=== PATIENT | female | born 1975 | race Caucasian/White ===

== ENCOUNTER 2022-05-07 10:28 | Outpatient (CLI) | payer OTHER, SELFPAY ==
[2022-05-07 13:45] LABS: Basophils Absolute Auto 0.06 K/uL (0.00-0.30); Basophils Percent Auto 0.7 % (0.0-3.0); Eosinophils Absolute Auto 0.18 K/uL (0.00-0.50); Eosinophils Percent Auto 2.2 % (0.0-7.0); Hematocrit 34.6 % (33.0-51.0); Hemoglobin* 10.7 gm/dL (12.0-16.0); Immature Granulocytes Abs Auto 0.02 K/uL (0.00-0.30); Lymphocytes Absolute Auto 2.16 K/uL (0.90-2.90); Lymphocytes Percent Auto 26.1 % (20-44); Mean Corpuscular HGB Conc 31 gm/dL (32-36); Mean Corpuscular Hemoglobin 25 pg (26-34); Mean Corpuscular Volume 80 fL (80-100); Monocytes Percent Auto 9.3 % (0.0-11.0); Neutrophils Absolute Auto 5.08 K/uL (1.7-7.0); Neutrophils Percent Auto 61.5 % (42.0-72.0); Platelet Count* 299 K/uL (140-440); RDW Coefficient of Variation % 16.7 % (11.5-15.5); Red Blood Count 4.31 m/uL (4.00-5.20); White Blood Count* 8.27 K/uL (4.50-11.00)
[2022-05-07 13:52] LABS: Slide Review Reflex No
[2022-05-07 15:14] LABS: Chloride* 103 mmol/L (96-114); Potassium* 4.6 mmol/L (3.6-5.1); Sodium* 136 mmol/L (135-149)
[2022-05-07 15:16] LABS: Creatinine* 0.7 mg/dL (0.5-1.5); Estimated Glomerular Filt Rate 108 ml/min
[2022-05-07 15:17] LABS: Alanine Aminotransferase* 15 U/L (4-35); Blood Urea Nitrogen* 14 mg/dL (5-24); Carbon Dioxide* 25 mmol/L (20-32); Glucose* 145 mg/dL (60-115)
[2022-05-07 17:33] LABS: Thyroid Stimulating Hormone* 0.375 uIU/mL (0.270-4.20)
== END 2022-05-07 10:29 | disposition home or self-care (01) ==
PROVIDERS: PCP Family Medicine; Visit Provider Family Medicine
DX: E03.9 Hypothyroidism, unspecified (principal); I10 Essential (primary) hypertension; M06.9 Rheumatoid arthritis, unspecified; E11.9 Type 2 diabetes mellitus without complications; D50.9 Iron deficiency anemia, unspecified
CPT/HCPCS: 80048; 84443; 84460; 85025

== ENCOUNTER 2022-12-17 11:59 | Outpatient (CLI) | payer OTHER, SELFPAY | END 2022-12-17 12:00 | disposition home or self-care (01) | PROVIDERS: PCP Family Medicine; Visit Provider Family Medicine | DX: I10 Essential (primary) hypertension (principal); E03.9 Hypothyroidism, unspecified; E11.9 Type 2 diabetes mellitus without complications; E55.9 Vitamin D deficiency, unspecified; D50.9 Iron deficiency anemia, unspecified; M06.9 Rheumatoid arthritis, unspecified | CPT/HCPCS: 80048; 84439; 84443; 84460; 85025 ==

== ENCOUNTER 2023-04-16 12:38 | Outpatient (CLI) | payer OTHER, SELFPAY ==
[2023-04-16 13:48] LABS: Basophils Absolute Auto 0.04 K/uL (0.00-0.30); Basophils Percent Auto 0.5 % (0.0-3.0); Eosinophils Absolute Auto 0.12 K/uL (0.00-0.50); Eosinophils Percent Auto 1.5 % (0.0-7.0); Hematocrit 31.2 % (33.0-51.0); Hemoglobin* 9.1 gm/dL (12.0-16.0); Immature Granulocytes Abs Auto 0.01 K/uL (0.00-0.30); Immature Granulocytes Pct Auto 0.1 %; Lymphocytes Absolute Auto 1.92 K/uL (0.90-2.90); Lymphocytes Percent Auto 24.7 % (20-44); Mean Corpuscular HGB Conc 29 gm/dL (32-36); Mean Corpuscular Hemoglobin 23 pg (26-34); Mean Corpuscular Volume 77 fL (80-100); Monocytes Percent Auto 8.6 % (0.0-11.0); Neutrophils Absolute Auto 5.02 K/uL (1.7-7.0); Neutrophils Percent Auto 64.6 % (42.0-72.0); Platelet Count* 328 K/uL (140-440); Red Blood Count 4.04 m/uL (4.00-5.20); White Blood Count* 7.78 K/uL (4.50-11.00)
[2023-04-16 13:51] LABS: Slide Review Reflex No
[2023-04-16 14:35] LABS: Ferritin* 4.8 ng/mL (6.24-137.0)
== END 2023-04-16 12:39 | disposition home or self-care (01) ==
PROVIDERS: PCP Family Medicine; Visit Provider Family Medicine
DX: D50.0 Iron deficiency anemia secondary to blood loss (chronic) (principal); I48.0 Paroxysmal atrial fibrillation; E11.9 Type 2 diabetes mellitus without complications
CPT/HCPCS: 82728; 85025

== ENCOUNTER 2023-05-23 15:00 | Outpatient (RCR) | payer OTHER, SELFPAY ==
--- NOTE | 2023-05-06 09:37 | URNOTE ---
Request received for authorization for?Iron Sucrose (Venofer) ([id number]). Prior authorization is not required per Alicia for [employer]. Joshua Corey. Ref#[id number].
--- NOTE | 2023-05-06 10:11 | ONC.NURNOTE ---
Dx: Iron deficiency anemia secondary to chronic blood loss.
[2023-05-09 11:02] VITALS: BP 148/91; PULSE 67; RESP 18; TEMP 36.8; O2SAT 98
[2023-05-09] MEDS: 0.9 % SODIUM CHLORIDE 250 ml IV (11:45)
[2023-05-09] MEDS: IRON SUCROSE COMPLEX 200 MG in 0.9 % SODIUM CHLORIDE 100 ml 100 ML 440 MG IVPB (11:58)
[2023-05-09 12:16] VITALS: BP 115/77; PULSE 63; RESP 16; TEMP 36.4; O2SAT 96
[2023-05-09 12:57] VITALS: BP 103/69; PULSE 61; RESP 18; TEMP 37; O2SAT 97
[2023-05-14 15:07] VITALS: BP 105/71; PULSE 62; RESP 16; TEMP 36.6; O2SAT 98
[2023-05-14] MEDS: IRON SUCROSE COMPLEX 200 MG in 0.9 % SODIUM CHLORIDE 100 ml 100 ML 440 MG IVPB (15:46)
[2023-05-14] MEDS: 0.9 % SODIUM CHLORIDE 250 ml IV (16:25)
[2023-05-16 15:02] VITALS: BP 120/74; PULSE 72; RESP 16; TEMP 36.4; O2SAT 98
[2023-05-16] MEDS: IRON SUCROSE COMPLEX 200 MG in 0.9 % SODIUM CHLORIDE 100 ml 100 ML 440 MG IVPB (15:14)
[2023-05-16] MEDS: 0.9 % SODIUM CHLORIDE 250 ml IV (15:14)
[2023-05-16 16:10] VITALS: BP 105/66; PULSE 68; RESP 16; TEMP 36.1
[2023-05-20 15:00] VITALS: BP 114/76; PULSE 82; RESP 16; TEMP 36.3; O2SAT 96
[2023-05-20] MEDS: IRON SUCROSE COMPLEX 200 MG in 0.9 % SODIUM CHLORIDE 100 ml 100 ML 440 MG IVPB (15:10)
[2023-05-20] MEDS: 0.9 % SODIUM CHLORIDE 250 ml IV (15:10)
[2023-05-23 15:06] VITALS: BP 118/86; PULSE 69; RESP 16; TEMP 36.1; O2SAT 96
[2023-05-23] MEDS: 0.9 % SODIUM CHLORIDE 250 ml IV (15:22)
[2023-05-23] MEDS: IRON SUCROSE COMPLEX 200 MG in 0.9 % SODIUM CHLORIDE 100 ml 100 ML 440 MG IVPB (15:23)
[2023-05-23 16:19] VITALS: BP 116/81; PULSE 69; RESP 16; TEMP 36.1; O2SAT 96
== END 2023-11-05 23:59 | disposition home or self-care (01) ==
LOC: CCIC 15:00
PROVIDERS: PCP Family Medicine; Referring Provider Family Medicine; Visit Provider Clinical Nurse Specialist
DX: D50.9 Iron deficiency anemia, unspecified (principal)
CPT/HCPCS: 96365; 96374; 96376; J1756; J7050

== ENCOUNTER 2023-07-15 16:05 | Outpatient (CLI) | payer OTHER, SELFPAY | END 2023-07-15 16:06 | disposition home or self-care (01) | PROVIDERS: PCP Family Medicine; Visit Provider Family Medicine | DX: I10 Essential (primary) hypertension (principal); E03.9 Hypothyroidism, unspecified; E55.9 Vitamin D deficiency, unspecified; D50.0 Iron deficiency anemia secondary to blood loss (chronic); E11.9 Type 2 diabetes mellitus without complications; R53.83 Other fatigue | CPT/HCPCS: 82728; 84443; 85025 ==

== ENCOUNTER 2023-10-21 13:27 | Outpatient (CLI) | payer OTHER, SELFPAY | END 2023-10-21 13:28 | disposition home or self-care (01) | PROVIDERS: PCP Family Medicine; Visit Provider Family Medicine | DX: E03.9 Hypothyroidism, unspecified (principal); E11.9 Type 2 diabetes mellitus without complications | CPT/HCPCS: 80048; 84443 ==

== ENCOUNTER 2023-10-29 10:26 | Outpatient (CLI) | payer OTHER, SELFPAY | END 2023-10-29 10:27 | disposition home or self-care (01) | PROVIDERS: PCP Family Medicine; Visit Provider Family Medicine | DX: I50.9 Heart failure, unspecified (principal) | CPT/HCPCS: 80048; 83880; 85025 ==

== ENCOUNTER 2023-10-31 19:22 | Outpatient (CLI) | payer OTHER, SELFPAY ==
--- NOTE | 2023-11-20 11:37 | W.PM.SLEEP ---
Sleep Study Details Details Interpreting Provider: Minerva Date of Sleep Study: 10/31/23 Sleep Study Details: STUDY TYPE:? Home unattended ? BMI:? 46 ORDERING PROVIDER:Ferdinand Calhoun INDICATION:? Concerns about sleep apnea ? SLEEP SUMMARY:? 563.5 minutes monitored RESPIRATORY SUMMARY:? AHI 23.4 worse in the supine position Low oxygen 77 38.7% of study oxygen less than 90% Snoring 76% PERIODIC LIMB MOVEMENTS OF SLEEP:? Not recorded CARDIAC:? Range 55-87, mean 68.3 IMPRESSION:? Moderate obstructive sleep apnea with supine position dependency RECOMMENDATION: Treatment options include AutoSet CPAP, dental appliance and weight loss.
== END 2023-10-31 19:23 | disposition home or self-care (01) ==
LOC: SLEEP 19:23
PROVIDERS: PCP Family Medicine; Visit Provider Family Medicine
DX: G47.33 Obstructive sleep apnea (adult) (pediatric) (principal)
CPT/HCPCS: 95806

== ENCOUNTER 2023-11-01 12:06 | Emergency (ER) | payer OTHER, SELFPAY ==
[2023-11-01] VITALS (22 sets, daily range): BP systolic 95–130; BP diastolic 58–76; PULSE 59–77; RESP 16–20; TEMP 37.1; O2SAT 92–99; BMI 42.0
--- NOTE | 2023-11-01 12:51 | ED_ITS ---
HPI - General Adult General Chief complaint: Unspecified Complaint, Adult Stated complaint: Weakness, nausea, back pain Time Seen by Provider: 11/01/23 12:50 History of Present Illness HPI narrative: Patient reports ongoing symptoms of back pain, headache abdominal pain and anorexia, headache, fatigue and diarrhea. Was seen in the clinic recently for this but no improvements . Patient was recently hospitalized for CHF execration last week. 48-year-old woman with extensive past medical presents with a number of concerns including fever body aches abdominal pain. Was just hospitalized for CHF about 10 days ago per review of records. Daughter just diagnosed with influenza a at this visit. Reportedly herself is positive for RSV collected here today by the time I am seeing Margarita. She has a number of complaints. Describes an epigastric area pain since this hosp italization over the last couple of weeks for any time she eats anything it just hurts here and then can radiate with burning up into her mid chest. She is just not keeping up with food. Low energy. She says she just never felt this bad ever. Back ache. She is hardly urinating. Does continue to take furosemide. She reports her echocardiogram was normal in a ?mild? CHF exacerbation. Acknowl edges herself to be a ?heavy? girl but very active and she just is not able to function at her usual level she begins to tell me as her eyes well up. Has headache. Experiencing diarrhea. Saw primary 3 days ago but does not have results of this visit yet. Lab work was done. COVID approximately 2 weeks ago. Clearly quite upset that just does not have enough energy, persistently ill. Related Data Home Medications Medication Instructions Recorded Confirmed aspirin 81 mg chewable tablet 81 mg PO QDAY 02/22/22 10/29/23 lorazepam 0.5 mg tablet 0.5 mg PO QDAY PRN 02/22/22 10/29/23 meclizine 12.5 mg tablet 12.5 mg PO TID PRN 02/22/22 10/29/23 ondansetron HCl 4 mg tablet 4 mg PO Q8H PRN 02/22/22 10/29/23 Previous Rx's Medication Instructions Recorded etanercept 25 mg/0.5 mL 25 mg (0.5 mL) subcut 2XW #6 mL 12/30/22 subcutaneous solution furosemide 40 mg tablet 40 mg PO QAM #30 tabs 12/30/22 norethindrone (contraceptive) 0.35 0.35 mg PO QDAY #84 tabs 12/30/22 mg tablet diltiazem HCl 180 mg 180 mg PO DAILY #90 caps 05/13/23 capsule,extended release 24 hr sotalol 80 mg tablet 80 mg PO BID #180 tabs 05/13/23 albuterol sulfate 90 mcg/actuation 2 puff inhalation Q4-6H PRN 07/13/23 aerosol inhaler shortness of breath or wheezing #8.5 grams metformin 500 mg tablet,extended 1,000 mg (2 x 500 mg) PO QDAY #180 07/15/23 release 24 hr tabs methotrexate sodium 2.5 mg tablet 20 mg (8 x 2.5 mg) PO QWEEK #96 08/23/23 tabs prednisone 1 mg tablet 3 mg (3 x 1 mg) PO QDAY #270 tabs 09/09/23 losartan 50 mg tablet 50 mg PO QDAY #90 tabs 10/01/23 folic acid 1 mg tablet 1 mg PO DAILY #90 tabs 10/18/23 semaglutide 2 mg/dose (8 mg/3 mL) 2 mg (0.75 mL) subcut QWEEK #3 mL 10/21/23 subcutaneous pen injector omeprazole 40 mg capsule,delayed 40 mg PO DAILY #30 caps 11/01/23 release Synthroid 175 mcg tablet 175 mcg PO QDAY #90 tabs 11/06/23 (levothyroxine) Allergies Allergy/AdvReac Type Severity Reaction Status Date / Time shellfish derived Allergy Severe Anaphylaxis Verified 10/29/23 09:41 prochlorperazine AdvReac Severe Altered Verified 10/29/23 09:41 mental state hayfever Allergy Mild Congested Uncoded 10/29/23 09:41 Review of Systems Status of ROS: Reports: 6 or more systems reviewed and unremarkable except as noted in History and below [facility] Medical History Type 2 diabetes mellitus, without long-term current use of insulin ?E11.9 - Type 2 diabetes mellitus without complications (ICD-10) Acquired hypothyroidism ?E03.9 - Hypothyroidism, unspecified (ICD-10) Primary hypertension ?I10 - Essential (primary) hypertension (ICD-10) Paroxysmal atrial fibrillation ?I48.0 - Paroxysmal atrial fibrillation (ICD-10) 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 ?M35.9 - Systemic involvement of connective tissue, unspecified (ICD-10) ?K11.7 - Disturbances of salivary secretion (ICD-10) Vitamin D deficiency (06/27/11) ?E55.9 - Vitamin D deficiency, unspecified (ICD-10) Seasonal allergies ?J30.2 - Other seasonal allergic rhinitis (ICD-10) Rheumatoid arthritis (2004) ?M06.9 - Rheumatoid arthritis, unspecified (ICD-10) Iron deficiency anemia due to chronic blood loss (04/27/08) ?D50.0 - Iron deficiency anemia secondary to blood loss (chronic) (ICD-10) 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) ?I61.9 - Nontraumatic intracerebral hemorrhage, unspecified (ICD-10) Hemorrhagic cerebrovascular accident (CVA) ?I61.9 - Nontraumatic intracerebral hemorrhage, unspecified (ICD-10) Chronic iritis ?H20.10 - Chronic iridocyclitis, unspecified eye (ICD-10) Psoriasis ?L40.9 - Psoriasis, unspecified (ICD-10) Menorrhagia ?N92.0 - Excessive and frequent menstruation with regular cycle (ICD-10) Surgical History History of hysteroscopy (11/16/14) ?Z98.890 - Other specified postprocedural states (ICD-10) History of ankle surgery (2002) ?Z98.890 - Other specified postprocedural states (ICD-10) Family History Mother Atrial fibrillation, Onset Age: 50 Father Pancreatic cancer Type 2 diabetes mellitus Social History Narrative: -Richard, 4 kids, Nurse, [employer]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[facility] [employer], non-smoker, social EtOH What is your current living situation?: I presently have a place to live Problems where you live: no known problems In the past 12 months, utilities in danger of being shut off: no In past 12 months, lack of transportation kept you from medical appts, meetings, work, or getting things needed for daily living: no In the past 12 mos, have been you worried that your food would run out before you had money to buy more?: never true In the past 12 mos, the food you bought just didn't last and you didn't have money to buy more?: never true Smoking Status: Never smoker Do you use any of these nicotine containing products: None Second hand tobacco smoke exposure: No How often do you have a drink containing alcohol: never AUDIT-C Alcohol total score: 0 Non-prescribed substance use: denies use How often does anyone, including family, friends and others, physically hurt you : never How often does anyone, including family, friends and others, insult or talk down to you: never How often does anyone, including family, friends and others, threaten you with harm: never How often does anyone, including family, friends and others, scream or curse at you: never Little interest or pleasure in doing things: not at all Feeling down, depressed, or hopeless: not at all Exam Narrative: Exam Narrative: Is pleasant. Lightly tearful as noted. Breathing easily other than nasopharyngeal congestion. Oropharynx a little sticky. Skin is warm and dry. Lungs are clear. Sore to palpation trapezial in periscapular musculature. Little more difficult to assess but no JVD apparent. Heart in regular rate and rhythm. Distant but without murmur rub or gallop. Abdomen is overweight soft. Tender in the epigastrium. Negative Hebert's. Well-perfused peripherally. No significant edema. Const: Vital Signs, click to edit/add: Vital Signs - 24 hr 11/01/23 12:21 Temperature 98.8 F Respiratory Rate 20 Blood Pressure [Ri ght Upper Arm] 110/76 Pulse Oximetry 98 Oxygen Delivery Me thod Room Air Documenting provider has reviewed patient's vital signs: yes Course Vital Signs Vital signs: Initial Vital Signs Temperature 98.8 F 11/01/23 12:21 Temperature Source Temporal Artery Scan 11/01/23 12:21 Respiratory Rate 20 11/01/23 12:21 Blood Pressure 110/76 11/01/23 12:21 Blood Pressure Mean 87 11/01/23 12:21 Pulse Oximetry 98 11/01/23 12:21 Oxygen Delivery Method Room Air 11/01/23 12:21 Vital Signs Temperature 98.8 F 11/01/23 12:21 Respiratory Rate 20 11/01/23 12:21 Blood Pressure 110/76 11/01/23 12:21 Pulse Oximetry 98 11/01/23 12:21 Oxygen Delivery Method Room Air 11/01/23 12:21 Temperature 98.8 F 11/01/23 12:21 Pulse Rate 69 11/01/23 18:33 Respiratory Rate 16 11/01/23 12:26 Blood Pressure 101/60 11/01/23 18:32 Pulse Oximetry 98 11/01/23 18:33 Oxygen Delivery Method Room Air 11/01/23 14:33 Medications Administered Medications: Discontinued Medications Generic Name Dose Route Start Last Admin Trade Name Freq PRN Reason Stop Dose Admin Sodium Chloride 500 mls @ 500 mls/hr 11/01/23 13:51 11/01/23 15:30 0.9 % Sodium Chloride 500 Ml IV 11/01/23 14:50 Infused .Q1H ONE Infusion Sodium Chloride 1,000 mls @ 1,000 mls/hr 11/01/23 16:41 11/01/23 18:35 0.9 % Sodium Chloride 1000 Ml IV 11/01/23 17:40 Infused .Q1H ONE Infusion Lidocaine HCl 7.5 ml 11/01/23 16:44 11/01/23 17:18 Lidocaine Hcl 4 % Top Soln 50 Ml Bottle PO 11/01/23 16:45 7.5 ml ONCE ONE Administration Lidocaine/Aluminum/Magnesium/Simeth 30 ml 11/01/23 16:44 11/01/23 17:18 Mag Hydrox/Aluminum Hyd/Simeth 30 Ml Oral.Susp PO 11/01/23 16:45 30 ml ONCE ONE Administration Omeprazole 40 mg 11/01/23 18:54 11/01/23 19:08 Omeprazole [address] PO 11/01/23 18:55 40 mg ONCE ONE Administration Ondansetron HCl 4 mg 11/01/23 16:41 11/01/23 17:18 Ondansetron 2 Mg/Ml Inj IVP 11/01/23 16:42 4 mg ONCE ONE Administration Medical Decision Making MDM Narrative Medical decision making narrative: Would check basic labs; chemistries may have been affected by recent treatments. Probably is somewhat dehydrated. Altered electrolytes and dehydration could be contributing to fatigue. Does take some time to feel better as well. RSV contributing likely. Does not sound to have severe CHF. Would check transaminases and lipase given location of discomfort. Could be a hiatal hernia here contributing as well. Likely GERD. Deconditioning likely also with repeated bouts of recent illness. White count mildly elevated. RSV positive. ProBNP is normal. Hyponatremia with a sodium of 130 and creatinine 1.5 likely both related to medical diuresis and possibly diarrhea. ProBNP is normal. Creatinine at 1.5 is nearly doubled from prior measurement. Trial of GI cocktail does seem to help with discomfort. Given IV normal saline and Zofran. Did request chest x-ray to further assess fluid status/CHF. By my read does not appear to have any effusion. No infiltrate. Normal cardiac silhouette. Requested ultrasound -- discussed with rn imaging noting cholelithiasis but without cholecystitis. Possibly experiencing bouts of biliary colic but I think GERD more likely. Radiology over-read as below Study:?US-Abdomen RUQ-11/01/2023 5:22:28 PM Ordering Physician:?ELIZABETH HOPE Final Report: Indication: Epigastric pain after eating Technique: Multiple transverse and longitudinal sonographic grayscale images of the right upper quadrant of the abdomen were obtained, supplemented with color, power, and spectral Doppler imaging. Comparison: None. Findings: Pancreas: Not well visualized. Liver length: 17.3 cm. Liver appearance: Mild hepatic steatosis. No biliary ductal dilation. Portal vein: Patent, hepatopetal flow. CBD: 0.4 cm. Gallbladder: Negative sonographic Hebert sign. Cholelithiasis. Right kidney length: 13.2 cm. Right kidney appearance: Normal. Impression: 1. Mild hepatic steatosis. 2. Cholelithiasis without sonographic evidence of acute cholecystitis. Overall improved with treatments as above. Is also given dose of omeprazole as well. See patient discharge plan for further discussion Lab Data Lab results reviewed: Yes I reviewed the patient's lab results Labs: Lab Results 11/01/23 11/01/23 11/01/23 Range/Units 12:16 13:41 14:00 WBC (4.50-11.00) K/uL RBC (4.00-5.20) m/uL Hgb (12.0-16.0) gm/dL Hct (33.0-51.0) % MCV (80-100) fL MCH (26-34) pg MCHC (32-36) gm/dL RDW Coeff of Lia (11.5-15.5) % Plt Count (140-440) K/uL Neut % (Auto) (42.0-72.0) % Lymph % (Auto) (20-44) % Tyrrell % (Auto) (0.0-11.0) % Eos % (Auto) (0.0-7.0) % Baso % (Auto) (0.0-3.0) % Neut # (Auto) (1.7-7.0) K/uL Lymph # (Auto) (0.90-2.90) K/uL Tyrrell # (Auto) (0.00-0.90) K/UL Eos # (Auto) (0.00-0.50) K/uL Baso # (Auto) (0.00-0.30) K/uL Abs Immat Gran (auto) (0.00-0.30) K/uL Imm/Tot Granulo (auto) % Sodium (135-149) mmol/L Potassium (3.6-5.1) mmol/L Chloride (96-114) mmol/L Carbon Dioxide (20-32) mmol/L Anion Gap (7-15) mEq/L BUN (5-24) mg/dL Creatinine (0.5-1.5) mg/dL Estimated Creat Clear Estimated GFR ml/min Glucose (60-115) mg/dL Calcium (8.4-10.6) mg/dL Total Bilirubin (0.1-1.5) mg/dL Direct Bilirubin (0.0-0.5) mg/dL AST (12-35) U/L ALT (4-35) U/L Alkaline Phosphatase (40-150) U/L C-Reactive Protein (0.5-1.0) mg/dL NT-Pro-B Natriuret Pep pg/mL Total Protein (6.0-8.3) g/dL Albumin (3.3-5.0) g/dL Urine Color Yellow (Yellow) Urine Appearance Clear (Clear) Urine pH 5.5 (5.0-8.5) Ur Specific Thatcher 1.015 (1.000-1.030) Urine Protein Negative (Negative) Urine Glucose (UA) Negative (Negative) Urine Ketones Negative (Negative) Urine Blood Negative (Negative) Urine Nitrite Negative (Negative) Urine Bilirubin Negative (Negative) Urine Urobilinogen 0.2 (0.2-1.0) Ur Leukocyte Esterase Negative (Negative) Urine RBC 0-2 (0-2) Urine WBC 2-5 (0-5) Ur Squamous Epith Cells Few (None-Few) Urine Bacteria Few A (None) Fine Granular Casts Few A (None) SARS-CoV-2 (PCR) Negative SARS-CoV-2 (Negative) Influenza Type A (PCR) Negative PCR FLU A (Negative) Influenza Type B (PCR) Negative PCR FLU B (Negative) RSV (PCR) POSITIVE PCR RSV A (Negative) Lab Acknowledgement Test Added 11/01/23 Range/Units 14:15 WBC 15.20 H (4.50-11.00) K/uL RBC 5.40 H (4.00-5.20) m/uL Hgb 14.0 (12.0-16.0) gm/dL Hct 42.9 (33.0-51.0) % MCV 79 L (80-100) fL MCH 26 (26-34) pg MCHC 33 (32-36) gm/dL RDW Coeff of Lia 16.2 H (11.5-15.5) % Plt Count 416 (140-440) K/uL Neut % (Auto) 72.3 H (42.0-72.0) % Lymph % (Auto) 17.8 L (20-44) % Tyrrell % (Auto) 8.2 (0.0-11.0) % Eos % (Auto) 0.5 (0.0-7.0) % Baso % (Auto) 0.3 (0.0-3.0) % Neut # (Auto) 11.00 H (1.7-7.0) K/uL Lymph # (Auto) 2.70 (0.90-2.90) K/uL Tyrrell # (Auto) 1.20 H (0.00-0.90) K/UL Eos # (Auto) 0.10 (0.00-0.50) K/uL Baso # (Auto) 0.00 (0.00-0.30) K/uL Abs Immat Gran (auto) 0.10 (0.00-0.30) K/uL Imm/Tot Granulo (auto) 0.9 % Sodium 130 L (135-149) mmol/L Potassium 3.6 (3.6-5.1) mmol/L Chloride 92 L (96-114) mmol/L Carbon Dioxide 28 (20-32) mmol/L Anion Gap 10 (7-15) mEq/L BUN 27 H (5-24) mg/dL Creatinine 1.5 (0.5-1.5) mg/dL Estimated Creat Clear 42.94 Estimated GFR 43 ml/min Glucose 169 H (60-115) mg/dL Calcium 10.0 (8.4-10.6) mg/dL Total Bilirubin 1.0 (0.1-1.5) mg/dL Direct Bilirubin 0.2 (0.0-0.5) mg/dL AST 21 (12-35) U/L ALT 21 (4-35) U/L Alkaline Phosphatase 68 (40-150) U/L C-Reactive Protein < 0.5 L (0.5-1.0) mg/dL NT-Pro-B Natriuret Pep 234 pg/mL Total Protein 8.2 (6.0-8.3) g/dL Albumin 4.6 (3.3-5.0) g/dL Urine Color (Yellow) Urine Appearance (Clear) Urine pH (5.0-8.5) Ur Specific Thatcher (1.000-1.030) Urine Protein (Negative) Urine Glucose (UA) (Negative) Urine Ketones (Negative) Urine Blood (Negative) Urine Nitrite (Negative) Urine Bilirubin (Negative) Urine Urobilinogen (0.2-1.0) Ur Leukocyte Esterase (Negative) Urine RBC (0-2) Urine WBC (0-5) Ur Squamous Epith Cells (None-Few) Urine Bacteria (None) Fine Granular Casts (None) SARS-CoV-2 (PCR) (Negative) Influenza Type A (PCR) (Negative) Influenza Type B (PCR) (Negative) RSV (PCR) (Negative) Lab Acknowledgement Discharge Plan Discharge Clinical Impression: Epigastric pain, Cholelithiasis, Hyponatremia, Dehydration Patient Disposition: Home w/ Parent or Adult Condition: Stable Additional Instructions: Focus on hydration. Might need to transition to broths and soups for a little while. Crackers, rice, toast. I suppose part of the challenge though in this case is diabetes and effect on sugars. Monitor closely. I would like you to take omeprazole daily for 2 weeks and then reassess. Schedule follow-up with your primary care provider or with general surgery to consider further evaluation of your gallbladder if this continues to be an issue. Depending on what degree you have symptoms or the persistence of them, an EGD might also be indicated. For breakthrough discomfort can take famotidine or liquid antacid/anti-gas. Zofran from [facility]. Prescriptions: New omeprazole 40 mg capsule,delayed release(DR/EC) 40 mg PO DAILY Qty: 30 0RF No Action norethindrone (contraceptive) 0.35 mg tablet 0.35 mg PO QDAY Qty: 84 3RF furosemide 40 mg tablet 40 mg PO QAM Qty: 30 1RF etanercept 25 mg/0.5 mL solution 25 mg subcut 2XW Qty: 6 1RF metformin 500 mg tablet extended release 24 hr 1,000 mg PO QDAY Qty: 180 1RF semaglutide 2 mg/dose (8 mg/3 mL) pen injector 2 mg subcut QWEEK Qty: 3 5RF albuterol sulfate 90 mcg/actuation HFA aerosol inhaler 2 puff inhalation Q4-6H PRN (Reason: shortness of breath or wheezing) Qty: 8.5 0RF aspirin 81 mg tablet,chewable 81 mg PO QDAY lorazepam 0.5 mg tablet 0.5 mg PO QDAY PRN meclizine 12.5 mg tablet 12.5 mg PO TID PRN ondansetron HCl 4 mg tablet 4 mg PO Q8H PRN sotalol 80 mg tablet 80 mg PO BID Qty: 180 3RF diltiazem HCl 180 mg capsule,extended release 24hr 180 mg PO DAILY Qty: 90 3RF methotrexate sodium 2.5 mg tablet 20 mg PO QWEEK Qty: 96 1RF prednisone 1 mg tablet 3 mg PO QDAY Qty: 270 1RF losartan 50 mg tablet 50 mg PO QDAY Qty: 90 0RF folic acid 1 mg tablet 1 mg PO DAILY Qty: 90 0RF levothyroxine [Synthroid] 175 mcg tablet 175 mcg PO QDAY Qty: 90 1RF Rx Instructions: Synthroid brand only Follow Up/Referrals: Mil Calhoun MD [Primary Care Provider] - Stand Alone Forms: [facility] Info Instructions
[2023-11-01 13:17] LABS: PCR FLU A Negative PCR FLU A (Negative); PCR FLU B Negative PCR FLU B (Negative); SARS PCR* Negative SARS-CoV-2 (Negative)
[2023-11-01 13:45] LABS: PCR RSV POSITIVE PCR RSV (Negative)
--- NOTE | 2023-11-01 13:52 | XR_ITS ---
Patient: JOSEPHINE BAR Facility:?[facility] Patient ID:?[id number] Site Patient ID:?[id number]. Site :?[id number] Study:?XRay-Chest 1V CHEST-11/01/2023 2:49:01 PM Ordering Physician:?DR. GUEVARA Final Report: INDICATION: Weakness. Nausea. COMPARISON: None available. TECHNIQUE: 1 view. FINDINGS: Medical Devices: None. Lung Volumes: Adequate inspiration. No significant atelectasis. Lungs: Clear lungs. Pleura and Pleural spaces: No significant pleural effusion. No pneumothorax. Mediastinum: Normal cardiomediastinal silhouette. Bony Thorax and Soft Tissues: No significant incidental findings. IMPRESSION: No imaging findings pertinent to the indication for the exam or significant unrelated findings. Dictated by Amarjit Sin MD @ 11/01/2023 3:24:41 PM Signed by:?Amarjit Sin MD @11/01/2023 3:24:41 PM (Electronic Signature)
[2023-11-01 14:25] LABS: Appearance Urine Clear (Clear); Bilirubin Urine Negative (Negative); Blood Urine Negative (Negative); Color Urine Yellow (Yellow); Glucose Urine Negative (Negative); Ketones Urine Negative (Negative); Leukocyte Esterase Urine Negative (Negative); Nitrite Urine Negative (Negative); Protein Urine Negative (Negative); Specific Gravity Urine 1.015 (1.000-1.030); Urobilinogen Urine 0.2 (0.2-1.0); pH Urine 5.5 (5.0-8.5)
[2023-11-01] MEDS: 0.9 % SODIUM CHLORIDE 500 ML 500 ML IV (14:28)
[2023-11-01 14:41] LABS: Bacteria Urine Few; RBC Urine 0-2 (0-2); Squamous Epithelial Cell Urine Few (None-Few)
[2023-11-01 14:42] LABS: Basophils Percent Auto 0.3 % (0.0-3.0); Eosinophils Percent Auto 0.5 % (0.0-7.0); Hematocrit 42.9 % (33.0-51.0); Immature Granulocytes Pct Auto 0.9 %; Lymphocytes Percent Auto 17.8 % (20-44); Mean Corpuscular HGB Conc 33 gm/dL (32-36); Mean Corpuscular Hemoglobin 26 pg (26-34); Mean Corpuscular Volume 79 fL (80-100); Monocytes Percent Auto 8.2 % (0.0-11.0); Neutrophils Percent Auto 72.3 % (42.0-72.0); Platelet Count* 416 K/uL (140-440); RDW Coefficient of Variation % 16.2 % (11.5-15.5)
[2023-11-01 14:42] LABS: Fine Granular Casts Urine Few
[2023-11-01 14:49] LABS: Slide Review Reflex No
[2023-11-01 15:00] LABS: Albumin* 4.6 g/dL (3.3-5.0); Chloride* 92 mmol/L (96-114)
[2023-11-01 15:01] LABS: Potassium* 3.6 mmol/L (3.6-5.1); Sodium* 130 mmol/L (135-149)
[2023-11-01 15:03] LABS: Anion Gap 10 mEq/L (7-15); Aspartate Amino Transferase* 21 U/L (12-35); Bilirubin Direct* 0.2 mg/dL (0.0-0.5); Carbon Dioxide* 28 mmol/L (20-32); Creatinine* 1.5 mg/dL (0.5-1.5); Est. Creatinine Clearance* 42.94; Estimated Glomerular Filt Rate 43 ml/min; Total Protein* 8.2 g/dL (6.0-8.3)
[2023-11-01 15:04] LABS: Alanine Aminotransferase* 21 U/L (4-35); Alkaline Phosphatase* 68 U/L (40-150); Blood Urea Nitrogen* 27 mg/dL (5-24); Glucose* 169 mg/dL (60-115)
[2023-11-01 15:09] LABS: C Reactive Protein* < 0.5 mg/dL (0.5-1.0)
[2023-11-01 15:15] LABS: NT Pro B Type NatriureticPept* 234 pg/mL
--- NOTE | 2023-11-01 16:41 | US_ITS ---
Patient: JOSEPHINE BAR Facility:?[facility] Patient ID:?[id number] Site Patient ID:?[id number]. Site :?[id number] Study:?US-Abdomen RUQ-11/01/2023 5:22:28 PM Ordering Physician:?ELZIABETH HOPE Final Report: Indication: Epigastric pain after eating Technique: Multiple transverse and longitudinal sonographic grayscale images of the right upper quadrant of the abdomen were obtained, supplemented with color, power, and spectral Doppler imaging. Comparison: None. Findings: Pancreas: Not well visualized. Liver length: 17.3 cm. Liver appearance: Mild hepatic steatosis. No biliary ductal dilation. Portal vein: Patent, hepatopetal flow. CBD: 0.4 cm. Gallbladder: Negative sonographic Hebert sign. Cholelithiasis. Right kidney length: 13.2 cm. Right kidney appearance: Normal. Impression: 1. Mild hepatic steatosis. 2. Cholelithiasis without sonographic evidence of acute cholecystitis. Dictated by Jf De Paz MD @ 11/01/2023 5:29:45 PM Signed by:?Jf De Paz MD @11/01/2023 5:29:45 PM
[2023-11-01] MEDS: 0.9 % SODIUM CHLORIDE 1000 ml 1,000 ML IV (17:18)
[2023-11-01] MEDS: MAG HYDROX/ALUMINUM HYD/SIMETH 30 ML ORAL.SUSP PO (17:18)
[2023-11-01] MEDS: lidocaine HCL 4 % TOP SOLN 50 ML BOTTLE 7.5 ML PO (17:18)
[2023-11-01] MEDS: ONDANSETRON 2 MG/ML inj 4 MG IVP (17:18)
[2023-11-01] MEDS: OMEPRAZOLE 20 MG CAPSULE DR 40 MG PO (19:08)
== END 2023-11-01 19:10 | disposition home or self-care (01) ==
PROVIDERS: Emergency Provider Family Medicine; PCP Family Medicine
DX: R10.13 Epigastric pain (principal); K80.80 Other cholelithiasis without obstruction; E87.1 Hypo-osmolality and hyponatremia
CPT/HCPCS: 36415; 71045; 76705; 80048; 80076; 81001; 83880; 85025; 86140; 87040; 87086; 87493; 87631; 96374; 99284; A9270; J2405; J7030

== ENCOUNTER 2023-11-18 13:56 | Outpatient (CLI) | payer OTHER, SELFPAY | END 2023-11-18 13:57 | disposition home or self-care (01) | PROVIDERS: PCP Family Medicine; Visit Provider Nurse Practitioner Family | DX: R05.9 Cough, unspecified (principal); E87.1 Hypo-osmolality and hyponatremia; I50.9 Heart failure, unspecified | CPT/HCPCS: 80048; 83880; 85025 ==

== ENCOUNTER 2023-12-30 11:28 | Outpatient (CLI) | payer OTHER, SELFPAY | END 2023-12-30 11:29 | disposition home or self-care (01) | PROVIDERS: PCP Family Medicine; Visit Provider Family Medicine | DX: I10 Essential (primary) hypertension (principal); Z13.220 Encounter for screening for lipoid disorders | CPT/HCPCS: 80048; 80061 ==

== ENCOUNTER 2024-03-09 08:45 | Outpatient (CLI) | payer OTHER, SELFPAY | END 2024-03-09 08:46 | disposition home or self-care (01) | LOC: FBOREF 08:45 | PROVIDERS: PCP Family Medicine; Visit Provider Family Medicine | DX: I50.9 Heart failure, unspecified (principal); I10 Essential (primary) hypertension | CPT/HCPCS: 84132 ==

== ENCOUNTER 2024-08-03 16:24 | Outpatient (CLI) | payer OTHER, SELFPAY | END 2024-08-03 16:25 | disposition home or self-care (01) | PROVIDERS: PCP Family Medicine; Visit Provider Family Medicine | DX: E03.9 Hypothyroidism, unspecified (principal); N92.0 Excessive and frequent menstruation with regular cycle; I10 Essential (primary) hypertension; R53.83 Other fatigue | CPT/HCPCS: 80048; 82728; 84443 ==

== ENCOUNTER 2024-08-27 11:00 | Outpatient (RCR) | payer OTHER, SELFPAY ==
[2024-08-11 13:57] VITALS: BP 98/65; PULSE 59; RESP 16; TEMP 36.1; O2SAT 97
[2024-08-11] MEDS: IRON SUCROSE COMPLEX 200 MG in 0.9 % SODIUM CHLORIDE 100 ml 100 ML 440 MG IVPB (14:26)
[2024-08-11 14:50] VITALS: BP 96/58; PULSE 58; RESP 16; O2SAT 96
[2024-08-11 15:26] VITALS: BP 107/67; PULSE 61; RESP 16; O2SAT 98
[2024-08-13 13:58] VITALS: BP 114/79; PULSE 77; RESP 16; TEMP 36.3; O2SAT 97
[2024-08-13] MEDS: IRON SUCROSE COMPLEX 200 MG in 0.9 % SODIUM CHLORIDE 100 ml 100 ML 440 MG IVPB (14:09)
[2024-08-13 14:52] VITALS: BP 103/68; PULSE 65; RESP 16; TEMP 36.8; O2SAT 97
[2024-08-21 11:14] VITALS: BP 99/71; PULSE 60; RESP 16; TEMP 36.2; O2SAT 92
[2024-08-21] MEDS: SODIUM CHLORIDE 0.9 % (FLUSH) 10 ML SYRINGE IVF ×2 (11:15→11:58)
[2024-08-21] MEDS: IRON SUCROSE COMPLEX 200 MG in 0.9 % SODIUM CHLORIDE 100 ml 100 ML 440 MG IVPB (11:33)
[2024-08-21 12:00] VITALS: BP 101/71; PULSE 63; RESP 16; TEMP 36.7; O2SAT 97
[2024-08-21 12:30] VITALS: BP 106/72; PULSE 61; RESP 16; TEMP 36.6; O2SAT 97
[2024-08-24 13:05] VITALS: BP 97/58; PULSE 58; RESP 15; TEMP 36.6; O2SAT 96
[2024-08-24] MEDS: IRON SUCROSE COMPLEX 200 MG in 0.9 % SODIUM CHLORIDE 100 ml 100 ML 440 MG IVPB (13:38)
[2024-08-24] MEDS: SODIUM CHLORIDE 0.9 % (FLUSH) 10 ML SYRINGE IVF (13:38)
[2024-08-24 14:30] VITALS: BP 90/61; PULSE 64; RESP 18; TEMP 36.7; O2SAT 97
--- OUTSIDE RECORDS SUMMARY | 2024-08-27 07:05 | XMS_ITS | Continuity of Care Document ---
Author Name NwHIN User [id number] llowed Address Unknown Organization Unknown Address Unknown Procedures FILTER APPLIED:Only known Procedures with Onset Date within the last 5 years Procedure Date Procedure Provider Additiona l Information Status CBC AND DIFFERENTIAL (73635) Completed BASIC METABOLIC PANEL (05244) Completed UA W/ SEDIMENT EXAM REFLEXED PER CRITERIA (15518) Completed URINALYSIS MICROSCOPIC (63306) Completed METABOLIC PANEL TOTAL CA (04584) Completed LIPID PANEL (19502) Comp leted METABOLIC PANEL TOTAL CA (63350) Completed ASSAY OF NATRIURETIC PEPTIDE (94481) Completed COMPLETE CBC W/AUTO DIFF WBC (51122) Completed BLOOD CULTURE FOR BACTERIA (26361) Completed ROUTINE VENIPUNCTURE (10310) Completed HEPATIC FUNCTION PANEL (85645) Completed THER/PROPH/DIAG INJ IV PUSH (91232) Completed RESP VIRUS 3-5 TARGETS (25595) Completed URINE CULTURE/COLONY COUNT (05927) Completed C-REACTIVE PROTEIN (12628) Completed COMPLETE CBC W/AUTO DIFF WBC (20556) Completed X-RAY EXAM CHEST 1 VIEW (44740) Completed ECHO EXAM OF ABDOMEN (43662) Completed METABOLIC PANEL TOTAL CA (00354) Completed EMERGENCY DEPT VISIT MOD MDM (41857) Completed URINALYSIS AUTO W/SCOPE (12571) Completed ASSAY OF NATRIURETIC PEPTIDE (98288) Completed SLEEP STUDY UNATT RESP EFFT (44866) Completed COMPLETE CBC W/AUTO DIFF WBC (51143) Completed ASSAY OF NATRIURETIC PEPTIDE (95989) Completed METABOLIC PANEL TOTAL CA (09562) Completed METABOLIC PANEL TOTAL CA (26957) Completed ASSAY THYROID STIM HORMONE (85317) Completed COMPLETE CBC W/AUTO DIFF WBC (87998) Completed ASSAY OF FERRITIN (92648) Completed ASSAY THYROID STIM HORMONE (06614) Completed THER/PROPH/DIAG IV INF INIT (58928) Completed THER/PROPH/DIAG INJ IV PUSH (74552) Completed Encounters FILTER APPLIED:Only known Encounters with Admission Date within the last 5 years Encounter Location Admission Discharge Billing Code Account Group Supervisor Madhav rivera Outpatient [address] Outpatient Mil Calhoun Outpatient Mil Calhoun Outpatient Mil Calhoun Outpatient Mil Calhoun Emergency Mil Gomez Outpatient Roosevelt Torres Outpatient Mil Calhoun Emergency [id number] LINDSEY LLANOS
--- OUTSIDE RECORDS SUMMARY | 2024-08-27 07:05 | XMS_ITS | Clinical Summary ---
Author Organization [facility] Address [place], [place] [address] Care Team Providers Care Business Practices Officer Name Role Phone Mil Calhoun MD Primary Care Provider + Jordan Carpenter MD Unavailable [phone] Allergies Active Allergy Reactions Criticality Noted Date Comments Prochlorperazine Agitation Medium 09/29/2021 Homeopathic Products 04/07/2007 Shellfish Containing Products *Unknown 2006 Medications norethindrone, Contraceptive, (MICRONOR, 28,) 0.35 mg tabletIndication s:Menorrhagia with regular cycle Take 1 tablet by mouth once daily. 3 Package 3 9 Active etanercept (ENBREL) 25 mg/0.5mL (0.51) injectionIndicat ions:Rheumatoid arthritis involving multiple sites with positive rheumatoid factor (HC) INJECT 25 MG UNDER THE SKIN TWICE A WEEK 12 mL 1 9 Active folic acid 1 mg tabletIndication s:High risk medication use TAKE 1 TABLET BY MOUTH ONCE DAILY. 90 tablet 9 Active methotrexate (RHEUMATREX) 2.5 mg tablet Take 20 mg by mouth once weekly. Takes on Active metFORMIN (GLUCOPHAGE XR) 500 mg Extended-Release tablet Take 1,000 mg by mouth once daily. 2 Active levothyroxine (SYNTHROID) 175 mcg tablet Take 175 mcg by mouth once daily. 2 Active ibuprofen (ADVIL; MOTRIN) 200 mg tablet Take 800 mg by mouth at bedtime. Takes with her prednisone Active hydrOXYzine HCL (ATARAX) 25 mg tabletIndication s:Anxiety Take 1 Tablet (25 mg) by mouth at bedtime if needed for Anxiety. 30 Tablet 2 Active dilTIAZem CD (CARDIZEM CD) 180 mg extended release 24 hr capsuleIndicatio ns:Atrial fibrillation with RVR (HC) Take 1 Capsule (180 mg) by mouth once daily. 30 Capsule 3 Active albuterol HFA (PRO-AIR; VENTOLIN; PROVENTIL) 90 mcg/actuation inhaler Inhale 2 Puffs by mouth every 6 hours if needed for Shortness Of Breath or Wheezing. 3 Active codeine-guaiFENe sin (ROBITUSSIN AC) 10-100 mg/5 mL liquid Take 5-10 mL by mouth every 6 hours if needed for Cough. 4 Active losartan (COZAAR) 50 mg tablet Take 50 mg by mouth once daily. 4 Active Ozempic 2 mg/dose (8 mg/3 mL) pen Inject 2 mg subcutaneous once weekly. 4 Active sotaloL (BETAPACE) 80 mg tablet Take 80 mg by mouth two times daily. 3 Active predniSONE (DELTASONE) 1 mg tablet Take 3 mg by mouth at bedtime. Active furosemide (LASIX) 40 mg tabletIndication s:Acute on chronic diastolic congestive heart failure (HC) TAKE 1 TABLET (40 MG) BY MOUTH EVERY MORNING. 30 Tablet 4 Active lidocaine 5 % topical patchIndications :Back pain, unspecified back location, unspecified back pain laterality, unspecified chronicity Apply to intact skin to cover most painful area for max 12hr per 24hr period. 15 Patch 4 Active oxyCODONE (ROXICODONE) 5 mg immediate release tabletIndication s:Back pain, unspecified back location, unspecified back pain laterality, unspecified chronicity Take 1 Tablet (5 mg) by mouth every 8 hours if needed (Severe pain). 5 Tablet 4 Active cyclobenzaprine (FLEXERIL) 10 mg tabletIndication s:Back pain, unspecified back location, unspecified back pain laterality, unspecified chronicity Take 1 Tablet (10 mg) by mouth every 8 hours if needed (Back spasm). 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 OPERATIONS MANAGER - 07/29/2024 11:35 AM [facility] [place] [address] Blake Ross MD Back pain, unspecified back location, unspecified back pain laterality, unspecified chronicity (Primary Dx) Discharge Disposition: Home Self Care 07/29/2024 Travel from Last 3 Months Immunizations Name Administration Dates Next Due Hepatitis B (Adult) 04/24/2006 Influenza A (H1N1), Inactiva nasima (Age >=3 Years) 07/19/2009 Influenza, IIV3 (Age >=3 years) 05/25/20 11,06/26/2010,07/02/2008,2004 Influenza, IIV4 06/18/2017 Pneumococcal Poly,23-Valent (Pneumovax) 06/26/2011 Tdap 07/17/2016,04/24/2006 Varicella Vaccine 04/24/2006 Family History Medical History Relation Name Comments Cancer Father Pancreatic Canc er Diabetes Father Hyperlipidemia Father Hypertension Father Heart Disease Maternal Grandfather Cancer Maternal Grandmother LUNG AN D BRAIN Thyroid Disease Mother Heart Disease Paternal Grandfather Diabetes Paternal Grandmother Stroke Paternal Grandmother Relation Name Status Comments Daughter 1 Alive Daughter 2 Alive Father Maternal Grandfather Maternal Grandmother Mother Alive Paternal Grandfather Paternal Grandmother Sister Alive 2 AND 3 HALF SI STER Son Alive Social History Tobacco Use Types Packs/Day Years Used Date Smoking Tobacco: Never Smokeless Tobacco: Never Tobacco Cessation:Counseling Given: Yes Alcohol Use Standard Drinks/Week Comments No 0 (1 standard drink = 0.6 oz pur e alcohol) social AHC Utilities Answer Date Recorded Do you have trouble paying f or utilities (for example, heat, electricity, water, phone)? Yes 10/22/2023 PHQ-2 Answer Date Recorded PHQ-2 Score 0 10/26/2018 Social Connections Answer Date Recorded Do you often feel lonely or isolated from those around you? 0 10/22/2023 Financial Resource Strain Answer Date R ecorded Difficulty of Paying Living Expenses 3 10/22/2023 Difficulty of Paying Living Expenses Not on file 10/22/2023 Food Insecurity Answer Date Recorded Do you worry your food will run out before you are able to buy more? 1 10/22/2023 Transportation Needs Answer Date Record ed Does lack of transportation keep you from medica l appointments? 1 10/22/2023 Does lack of transportation keep you from work, meetings or getting things that you need? 1 10/22/2023 Housing Stability Answer Date Recorded What is your housing situation today? 1 10/22/2023 Interpersonal Safety Answer Date Record ed Are you being hit, kicked, p ushed or yelled at (see row info)? No 07/29/2024 Interpersonal Safety Abuse 12 - 18 Not on file 07/29/2024 Interpersonal Safety Ambulatory Vulnerability No t on file 07/29/2024 Comments No Sex and Gender Information Value Date Recorded Sex Assigned at Female 07/29/2024 7:37 AM SR. OPERATIONS MANAGER Legal Sex Female 5:41 AM SR. OPERATIONS MANAGER Gender Identity Female 07/29/2024 9:52 AM SR. OPERATIONS MANAGER Sexual Orientation Straight 07/29/2024 7: 37 AM SR. OPERATIONS MANAGER Occupation Industry Job Start Date Job End Date [employer] Not on file Not on file Not on file Obstetrics History Para Term AB IAB SAB Ectopic Multiple Livin g Live Births 4 3 0 1 1 3 4 Date Outcome GA Total Labor Labor/2nd/3rd Weight Sex Type Anes PTL Treasure A1 A5 Name Clin 06/03 Para F Vag Living Nidia 07/26 SAB Deceas ed 09/10 Para F Vag Living Cristina e 12/20 Para M Vag Living Maryam Strickland re Last Filed Vital Signs Vital Sign Reading Time Taken Comments Blood Pressure 132/88 07/29/2024 7:39 AM SR. OPERATIONS MANAGER Pulse 68 07/29/2024 7:39 AM SR. OPERATIONS MANAGER Temperature 36.5 C (97.7 F) 07/29/2024 7:39 AM SR. OPERATIONS MANAGER Respiratory Rate 18 07/29/2024 7:39 AM SR. OPERATIONS MANAGER Oxygen Saturation 99% 07/29/2024 7:39 AM SR. OPERATIONS MANAGER Inhaled Oxygen Concentration - - Weight 112.6 kg (248 lb 3.2 oz) 07/29/2024 7:38 AM SR. OPERATIONS MANAGER Height 167.6 cm (5' 6) 07/29/2024 7:38 AM SR. OPERATIONS MANAGER Body Mass Index 40.06 07/29/2024 7:38 AM SR. OPERATIONS MANAGER Plan of Treatment Health Maintenance Due Date Last Done Comments Hepatitis C screening for ag e 18-79 1993 Pap test for age 21-65 12/25/2011 9, 04/27/2008, 02/01/2005, Additional history exists Pneumococcal series for age 6-49 (2 of 2 - PCV) 06/26/2012 06/26/2011 BMI (ht and wt on same day) for age 18+ 09/18/2019 09/18/2018, 05/27/2018, 09/21/2017, Additional history exists Depression screening for age 12+ 09/18/2019 09/18/2018, 09/18/2018, 09/18/2018, Additional history exists Colonoscopy through age 75 2020 Lipids for age 45-75 2020 04/27/2014, 09/02/19 10 Mammogram for age 45-75 2020 01/26/2016 COVID-19 vaccine series (3 - Moderna risk series) 10/29/2020 10/01/2020, 09/03/2020 Influenza for age 9-49 04/26/2024 7, 2011, 06/26/2010, Additional history exists Tetanus booster 07/17/2026 07/17/2016, 04/24/2006 HIV for age 15-65 Completed 03/23/2008 Tdap Completed 07/17/2016, 04/24/2006 Procedures Procedure Name Priority Date/Time Associated Diagnosis Comments CBC WITH AUTO DIFFERENTIAL STAT 07/29/2024 9:26 AM SR. OPERATIONS MANAGER BASIC METABOLIC PANEL STAT 07/29/2024 9:26 AM SR. OPERATIONS MANAGER CBC WITH AUTO DIFFERENTIAL STAT 07/29/2024 9:26 AM SR. OPERATIONS MANAGER CT ABDOMEN PELVIS STONE PROTOCOL WO STAT 07/29/2024 9:04 AM SR. OPERATIONS MANAGER XR SPINE LUMBAR 3 VIEWS STAT 07/29/2024 8:28 AM SR. OPERATIONS MANAGER URINALYSIS MICROSCOPIC STAT 07/29/2024 7:44 AM SR. OPERATIONS MANAGER UA W/ SEDIMENT EXAM REFLEXED PER CRITERIA STAT 07/29/2024 7:44 AM SR. OPERATIONS MANAGER XR MAMMO BILAT DIAG FFDM (IA) Routine 01/26/2016 10:42 AM CDT Left breast lump LIPID PANEL W REFLEX MEASURED LDL Routine 04/27/2014 2:31 PM CDT Hypertension PRODUCE SPECIALIST THIN PREP PAP SCREEN IMAGED Routine 12/24/2008 11:27 AM CDT Screening for Malignant Neoplasm of the Cervix ANTI HIV 1/2 Routine 03/23/2008 11:45 AM CDT Supervision Of Other Normal from Last 3 Months or Most Recently Relevant to Health Maintenance Results * (ABNORMAL) CBC WITH AUTO DIFFERENTIAL (07/29/2024 9:26 AM SR. OPERATIONS MANAGER) WHITE BLOOD COUNT 7.8 4.5 - 11.0 thou/cu mm 07/29/2024 9:40 AM SR. OPERATIONS MANAGER [facility] RED BLOOD COUNT 4.14 4.00 - 5.20 mil/cu mm 07/29/2024 9:40 AM [facility] HEMOGLOBIN 9.4(L) 12.0 - 16.0 g/dL 07/29/2024 9:40 AM [facility] HEMATOCRIT 32.1(L) 33.0 - 51.0 % 07/29/2024 9:40 AM [facility] MCV 78(L) 80 - 100 fL 07/29/2024 9:40 AM [facility] MCH 22.7(L) 26.0 - 34.0 pg 07/29/2024 9:40 AM [facility] MCHC 29.3(L) 32.0 - 36.0 g/dL 07/29/2024 9:40 AM [facility] RDW 17.4(H) 11.5 - 15.5 % 07/29/2024 9:40 AM [facility] PLATELET COUNT 342 140 - 440 thou/cu mm 07/29/2024 9:40 AM [facility] MPV 11.4(H) 6.5 - 11.0 fL 07/29/2024 9:40 AM [facility] % NEUT 60.9 % 07/29/2024 9:40 AM [facility] % LYMPH 26.6 % 07/29/2024 9:40 AM [facility] % MONO 10.1 % 07/29/2024 9:40 AM [facility] % EOS 1.5 % 07/29/2024 9:40 AM [facility] % BASO 0.9 % 07/29/2024 9:40 AM [facility] ABSOLUTE NEUTROPHILS 4.7 1.7 - 7.0 thou/cu mm 07/29/2024 9:40 AM [facility] ABSOLUTE LYMPHOCYTES 2.1 0.9 - 2.9 thou/cu mm 07/29/2024 9:40 AM [facility] ABSOLUTE MONOCYTES 0.8 <0.9 thou/cu mm 07/29/2024 9:40 AM [facility] ABSOLUTE EOSINOPHILS 0.1 <0.5 thou/cu mm 07/29/2024 9:40 AM [facility] ABSOLUTE BASOPHILS 0.1 <0.3 thou/cu mm 07/29/2024 9:40 AM [facility] Blood BLOOD SPECIMEN / Unknown Venipuncture / Unknown 07/29/2024 9:26 AM SR. OPERATIONS MANAGER 07/29/2024 9:29 AM SR. OPERATIONS MANAGER us Blake Ross MD HEMATOLOGY Final Result [facility] [address] [place] [address] * (ABNORMAL) BASIC METABOLIC PANEL (07/29/2024 9:26 AM [facility]) SODIUM 141 136 - 145 mmol/L 07/29/2024 9:52 AM [facility] POTASSIUM 4.0 3.5 - 5.1 mmol/L 07/29/2024 9:52 AM [facility] CHLORIDE 102 98 - 107 mmol/L 07/29/2024 9:52 AM [facility] CO2,TOTAL 26 22 - 29 mmol/L 07/29/2024 9:52 AM [facility] ANION GAP 13 5 - 18 07/29/2024 9:52 AM [facility] GLUCOSE 157(H) 70 - 99 mg/dL 07/29/2024 9:52 AM [facility] CALCIUM 9.4 8.8 - 10.4 mg/dL 07/29/2024 9:52 AM [facility] Comment: Reference ranges for this test were updated on 06/30/2024 to reflect our healthy population more accurately. Reference range changes are not retroactively applied to results, but previous results using the same methodology can be interpreted in the context of the new reference range. BUN 16 6 - 20 mg/dL 07/29/2024 9:52 AM [facility] CREATININE 0.77 0.50 - 0.90 mg/dL 07/29/2024 9:52 AM [facility] BUN/CREAT RATIO 21(H) 10 - 20 9:52 AM [facility] eGFR >90 >90 mL/min/1. 73m2 07/29/2024 9:52 AM SR. OPERATIONS MANAGER [facility] Comment:As of 2021, eG FR is calculated by the CKD-EPI creatinine equation without race adjustment. eGFR can be influenced by muscle mass, exercise, and diet. The reported eGFR is an estimation only and is only applicable if the renal function is stable. Blood BLOOD SPECIMEN / Unknown Venipuncture / Unknown 07/29/2024 9:26 AM SR. OPERATIONS MANAGER 07/29/2024 9:29 AM SR. OPERATIONS MANAGER us Blake Ross MD CHEMISTRY Final Result [facility] [address] [place] [address] * CT ABD/PELVIS STONE PROTOCOL WO CONT (07/29/2024 9:04 AM SR. OPERATIONS MANAGER) Anatomical Region Laterality Modality Abdomen, Pelvis, AORTA, LIVER, SPLEEN Computed Tomography 07/29/2024 9:22 AM SR. OPERATIONS MANAGER Narrative 07/29/2024 9:22 AM SR. OPERATIONS MANAGER For Patients: As a result of the Century Cures Act, medical imaging exams and procedure reports are released immediately into your electronic medical record. You may view this report before your referring provider. If you have questions, please contact your health care provider. Indication: Abdominal/flank pain. Technique: CT of the abdomen and pelvis was performed without contrast. Comparison: Ultrasound 10/25/2014. Findings: Visualized lung bases: Minimal atelectasis in the right lower lobe. Liver: Mild diffuse hepatic steatosis. Several small calcified gallstones within the gallbladder fundus and. The gallbladder is contracted. No pericholecystic inflammatory change. No biliary ductal dilation. Pancreas: Unremarkable for unenhanced technique. Spleen: Unremarkable for unenhanced technique. Adrenals: Unremarkable for unenhanced technique. Kidneys: Unremarkable for unenhanced technique. No nephrolithiasis or hydronephrosis. Aorta/IVC: Few atherosclerotic calcifications. Lymph nodes: No lymphadenopathy. Bowel: Nonobstructed bowel. Normal appendix. No localized inflammatory changes. No intraperitoneal free air or fluid. Pelvis: Enlarged uterus without definite measurable fibroid; however, there is mild contour irregularity suggesting more discrete fibroids. Bladder is unremarkable. Bones/body wall: Multilevel degenerative disc disease. Asymmetric disc bulge at L3-L4 results in mild spinal canal as well as left lateral recess stenosis and severe left neural foraminal stenosis. Left foraminal disc bulge at L2-L3 results in moderate-severe left foraminal stenosis. Diffuse disc bulge at L4-L5 results in mild spinal canal stenosis.. Impression: 1. No acute abnormality identified in the abdomen or pelvis to explain the patient`s flank pain. Specifically, no nephrolithiasis or hydronephrosis. 2. Cholelithiasis without CT evidence of acute cholecystitis. 3. Hepatic steatosis. 4. Enlarged uterus with suggestion of fibroids, suboptimally assessed. Recommend nonemergent pelvic ultrasound for further characterization. 5. Additional chronic/incidental findings as described. Please note that all CT scans at this facility use dose modulation, iterative reconstruction, and/or weight-based dosing when appropriate to reduce radiation dose to as low as reasonably achievable. Dictated by Briseida Franz MD @ 07/29/2024 9:22:54 AM (Electronically Signed) Procedure Note Briseida Franz, - 07/29/2024 For Patients: As a result of the Century Cures Act, medical imagingexams and procedure reports are released immediately into your electronicmedical record. You may view this report before your referring provider.If you have questions, please contact your health care provider. Indication: Abdominal/flank pain. Technique: CT of the abdomen and pelvis was performed without contrast. Comparison: Ultrasound 10/25/2014. Findings: Visualized lung bases: Minimal atelectasis in the right lower lobe. Liver: Mild diffuse hepatic steatosis. Several small calcified gallstoneswithin the gallbladder fundus and. The gallbladder is contracted. Nopericholecystic inflammatory change. No biliary ductal dilation. Pancreas: Unremarkable for unenhanced technique. Spleen: Unremarkable for unenhanced technique. Adrenals: Unremarkable for unenhanced technique. Kidneys: Unremarkable for unenhanced technique. No nephrolithiasis orhydronephrosis. Aorta/IVC: Few atherosclerotic calcifications. Lymph nodes: No lymphadenopathy. Bowel: Nonobstructed bowel. Normal appendix. No localized inflammatorychanges. No intraperitoneal free air or fluid. Pelvis: Enlarged uterus without definite measurable fibroid; however,there is mild contour irregularity suggesting more discrete fibroids.Bladder is unremarkable. Bones/body wall: Multilevel degenerative disc disease. Asymmetric discbulge at L3-L4 results in mild spinal canal as well as left lateral recessstenosis and severe left neural foraminal stenosis. Left foraminal discbulge at L2-L3 results in moderate-severe left foraminal stenosis. Diffusedisc bulge at L4-L5 results in mild spinal canal stenosis.. Impression: 1. No acute abnormality identified in the abdomen or pelvis to explain thepatient`s flank pain. Specifically, no nephrolithiasis orhydronephrosis. 2. Cholelithiasis without CT evidence of acute cholecystitis. 3. Hepatic steatosis. 4. Enlarged uterus with suggestion of fibroids, suboptimally assessed.Recommend nonemergent pelvic ultrasound for further characterization. 5. Additional chronic/incidental findings as described. Please note that all CT scans at this facility use dose modulation,iterative reconstruction, and/or weight-based dosing when appropriate toreduce radiation dose to as low as reasonably achievable. Dictated by Briseida Franz MD @ 07/29/2024 9:22:54 AM (Electronically Signed) us Blake Ross MD CT Final Result * XR SPINE LUMBAR 3 VIEWS (07/29/2024 8:28 AM SR. OPERATIONS MANAGER) Anatomical Region Laterality Modality LUMBAR SPINE Digital Radiogra phy 07/29/2024 8:35 AM SR. OPERATIONS MANAGER Narrative 07/29/2024 8:35 AM SR. OPERATIONS MANAGER For Patients: As a result of the 21st Century Cures Act, medical imaging exams and procedure reports are released immediately into your electronic medical record. You may view this report before your referring provider. If you have questions, please contact your health care provider. Indication: Pain. Technique: Three view(s) of the lumbar spine. Comparison: None available. Findings: Field of view: Adequate. Lumbar vertebral bodies: 5. Alignment: Dextroconvex curvature with apex at L3. Vertebral body heights: Maintained. Intervertebral disc spaces: Mild-moderate multilevel intervertebral disc space narrowing, most pronounced at L3-L4 on the left. Fracture: Not visualized. Degenerative changes: Multilevel endplate osteophytes involving the lower thoracic and lumbar spine. Moderate lower lumbar facet arthropathy. Miscellaneous: Sacroiliac joints are unremarkable. Nonobstructed bowel gas pattern. Two calcifications overlie the right renal shadow measuring up to 5 mm, possibly renal calculi Impression: 1. No acute osseous abnormality of the lumbar spine. 2. Multilevel lumbar spondylosis, most pronounced and moderate at L3-L4. 3. Possible right renal calculi. Dictated by Briseida Franz MD @ 07/29/2024 8:35:41 AM (Electronically Signed) Procedure Note Briseida Franz, DO - 07/29/2024 For Patients: As a result of the Cures Act, medical imagingexams and procedure reports are released immediately into your electronicmedical record. You may view this report before your referring provider.If you have questions, please contact your health care provider. Indication: Pain. Technique: Three view(s) of the lumbar spine. Comparison: None available. Findings: Field of view: Adequate. Lumbar vertebral bodies: 5. Alignment: Dextroconvex curvature with apex at L3. Vertebral body heights: Maintained. Intervertebral disc spaces: Mild-moderate multilevel intervertebral discspace narrowing, most pronounced at L3-L4 on the left. Fracture: Not visualized. Degenerative changes: Multilevel endplate osteophytes involving the lowerthoracic and lumbar spine. Moderate lower lumbar facet arthropathy. Miscellaneous: Sacroiliac joints are unremarkable. Nonobstructed bowel gaspattern. Two calcifications overlie the right renal shadow measuring up to5 mm, possibly renal calculi Impression: 1. No acute osseous abnormality of the lumbar spine. 2. Multilevel lumbar spondylosis, most pronounced and moderate at L3-L4. 3. Possible right renal calculi. Dictated by Briseida Franz MD @ 07/29/2024 8:35:41 AM (Electronically Signed) Blake Ross MD GENERAL IMAGING Final Result * (ABNORMAL) URINALYSIS MICROSCOPIC (07/29/2024 7:44 AM SR. OPERATIONS MANAGER) RBC 3-5(A) 0-2, None Seen /HPF 07/29/2024 8:00 AM [facility] WBC 0-2 0-2, 3-5, None Seen /HPF 07/29/2024 8:00 AM [facility] BACTERIA Rare None Seen, Rare, Few Bacteria/H PF 07/29/2024 8:00 AM [facility] EPITHELIAL CELLS Few None Seen, Few Epi/HPF 07/29/2024 8:00 AM [facility] Urine URINE SPECIMEN / Unknown Non-Blood / Unknown 07/29/2024 7:44 AM SR. OPERATIONS MANAGER 07/29/2024 7:48 AM [facility] us Blake Ross MD URINE Final Result [facility] [address] [place] [id number] * (ABNORMAL) UA W/ SEDIMENT EXAM REFLEXED PER CRITERIA (07/29/2024 7:44 AM SR. OPERATIONS MANAGER) COLOR Yellow Yellow Color 07/29/2024 7:53 AM [facility] CLARITY Clear Clear Clarity 07/29/2024 7:53 AM [facility] SPECIFIC GRAVITY,URINE 1.015 1.010, 1.015, 1.020, 1.025 07/29/2024 7:53 AM [facility] PH,URINE 5.5 6.0, 7.0, 8.0, 5.5, 6.5, 7.5, 8.5 07/29/2024 7:53 AM [facility] UROBILINOGEN, QUALITATIVE Normal Normal EU/dl 07/29/2024 7:53 AM [facility] PROTEIN, URINE Negative Negative mg/dL 07/29/2024 7:53 AM [facility] GLUCOSE, URINE Negative Negative mg/dL 07/29/2024 7:53 AM [facility] KETONES,URINE Negative Negative mg/dL 07/29/2024 7:53 AM [facility] BILIRUBIN,URI NE Negative Negative 07/29/2024 7:53 AM [facility] OCCULT BLOOD,URINE Small(A) Negative 07/29/2024 7:53 AM [facility] NITRITE Negative Negative 07/29/2024 7:53 AM SR. OPERATIONS MANAGER [facility] LEUKOCYTE ESTERASE Negative Negative 07/29/2024 7:53 AM [facility] Urine URINE SPECIMEN / Unknown Non-Blood / Unknown 07/29/2024 7:44 AM SR. OPERATIONS MANAGER 07/29/2024 7:48 AM SR. OPERATIONS MANAGER us Blake Ross MD URINE Final Result [facility] [address] [place] [address] * XR MAMMO BILAT DIAG FFDM (01/26/2016 10:42 AM CDT) Anatomical Region Laterality Modality BREASTS, Breast Left, Breast Right Bilateral Mammography, Other Impressions 01/27/2016 6:52 AM CDT No evidence of malignancy. RECOMMENDATION: Patient is advised if the palpable area is further symptomatic, she should follow this up with her physician. Otherwise recommend annual screening mammography. BI-RADS Category 2: Benign. Dictated by: Lon Mcdonald MD @01/26/2016 12:15:59 PM Narrative 01/27/2016 6:52 AM CDT BILATERAL DIGITAL DIAGNOSTIC MAMMOGRAM WITH COMPUTER-AIDED DETECTION, 01/26/2016 LEFT BREAST ULTRASOUND, 01/26/2016 INDICATION: Palpable lump superior to the upper outer LEFT breast. TECHNIQUE: BILATERAL diagnostic mammogram and LEFT breast ultrasound. Computer-aided detection was utilized. BREAST COMPOSITION: There are scattered fibroglandular densities in either breast. FINDINGS: No suspicious mass, microcalcifications or architectural distortion. No abnormality noted in the upper outer aspect of either breast. At ultrasound, the patient's palpable lump is superior to the breast tissue. No definite cyst, solid mass or other ultrasound abnormality is noted in the area of the patient's palpable lump. us Mil Calhoun MD MAMMO Final Re sult * (ABNORMAL) LIPID PANEL W REFLEX MEASURED LDL (04/27/2014 2:31 PM CDT) CHOLESTEROL,TOTAL 149 100 - 199 mg/dL 04/27/2014 3:38 PM CDT [facility] TRIGLYCERIDES 240(H) <150 mg/dL 04/27/2014 3:38 PM CDT [facility] HDL CHOLESTEROL 51 >40 mg/dL 4 3:38 PM CDT [facility] NON-HDL CHOLESTEROL 98 <145 mg/dl 04/27/2014 3:38 PM CDT [facility] CHOL/HDL RATIO 2.92 <4.50 04/27/2014 3:38 PM CDT [facility] LDL CHOLESTEROL 50 <=130 mg/dL 04/27/2014 3:38 PM CDT [facility] PATIENT STATUS NON-FASTI NG 04/27/2014 3:38 PM CDT [facility] Blood specimen (specimen) BLOOD SPECIMEN / Unknown [place]fly / Unknown 04/27/2014 2:31 PM CDT 04/27/2014 2:31 PM CDT Mil Calhoun MD CHEMISTRY Final Re sult [address] [place] [address], * PRODUCE SPECIALIST THIN PREP PAP SCREEN IMAGED (12/24/2008 11:27 AM CDT) CYTOLOGY CYTOPATHOLOGY REPORT [facility] Status: Final Report [id number] CLINICAL INFORMATION Date of Last LMP : post Last Pap Date : 04/27/2008 Last Pap Result : NIL ABN [place]/Bx Past 5 YRS: None Hormone Usage : None Menstrual Status : [place]/Bx done today : No Additional Data : None given HPV Request : HPV if ASCUS SPECIMEN SOURCE : Cervical/vaginal ThinPrep Vial, screening SPECIMEN ADEQUACY : Satisfactory for evaluation Endocervical component present. INTERPRETATION/RES ULT: Negative for intraepithelial lesion or malignancy (NIL) Cytology 1st Screener : lissa Signed by: lissa This specimen was screened by the FDA approved ThinPrep Imaging System and manually reviewed. NOTE: The Pap test is a screening technique, not a diagnostic procedure. It is used primarily to screen for squamous cancers and precursor lesions. Published studies have shown that it is subject to both false negative and false positive results. The pap test should not be used as the sole means to diagnose or exclude pre-malignant and malignant lesions. COLLECTED: 12/24/08 ACCESSIONED: 12/24/08 SIGNED: 12/30/08 [facility] PAP [place] CODE NIL [facility] Cervical/Vaginal (Cervical/Vagina l) 12/24/2008 11:27 AM CDT 12/24/2008 11:25 AM CDT Mil Calhoun MD PATHOLOGY/CYTOLOGY Final Result Performing Organization Address [facility]/ZIP Co de Phone Number [facility] INTERNAL ZIP [phone] [place] [id number] * ANTI HIV 1/2 (03/23/2008 11:45 AM CDT) ANTI HIV 1/2 Non-reacti ve [facility] Blood specimen (specimen) BLOOD SPECIMEN / Unknown 03/23/2008 11:45 AM CDT 03/23/2008 11:30 AM CDT Mil Calhoun MD SEND OUTS Final Re sult Performing Organization Address [facility]/ZIP Co de Phone Number [facility] INTERNAL ZIP [phone] [address] from Last 3 Months or Most Recently Relevant to Health Maintenance Insurance [facility] [employer] CHOICE Advance Directives * Full Code (Latest Code Status on File) Date Activated Date Inactivated Comments 10/22/2023 5:56 PM 10/23/2023 1:37 PM Question Answer Comments Code Status Discussion: Reviewed Preferences * Full Code Date Activated Date Inactivated Comments 07/07/2022 4:03 AM 07/07/2022 3:30 PM Question Answer Comments Code Status Discussion: Reviewed Preferences * Full Code Date Activated Date Inactivated Comments 01/21/2022 10:15 PM 01/23/2022 1:27 PM Question Answer Comments Code Status Discussion: Reviewed Preferences * Full Code Date Activated Date Inactivated Comments 01/21/2022 9:51 PM 01/21/2022 10:15 PM Question Answer Comments Code Status Discussion: Other presumed * Full Code Date Activated Date Inactivated Comments 10/28/2020 9:47 PM 10/30/2020 1:23 PM Question Answer Comments Code Status Discussion: Not Discussed Care Teams Business Practices Officer Relationship Specialty Start Date End Date Mil Calhoun MD [address] [place] [address] PCP - General 04/05/06 Jordan Carpenter MD [address] [facility] [address] [place] [address] Rheumatology Rheumatology 03/05/19
[2024-08-27 11:18] VITALS: BP 99/59; PULSE 58; RESP 16; TEMP 36.6; O2SAT 97
[2024-08-27] MEDS: SODIUM CHLORIDE 0.9 % (FLUSH) 10 ML SYRINGE IVF ×2 (11:40→12:03)
[2024-08-27] MEDS: IRON SUCROSE COMPLEX 200 MG in 0.9 % SODIUM CHLORIDE 100 ml 100 ML 440 MG IVPB (11:40)
[2024-08-27 12:27] VITALS: BP 100/68; PULSE 60; RESP 16; TEMP 37.1; O2SAT 97
== END 2025-02-07 23:59 | disposition home or self-care (01) ==
LOC: CCIC 11:00
PROVIDERS: PCP Family Medicine; Referring Provider Family Medicine; Visit Provider Clinical Nurse Specialist
DX: D50.9 Iron deficiency anemia, unspecified (principal)
CPT/HCPCS: 96365; J1756

== ENCOUNTER 2025-01-28 12:30 | Outpatient (CLI) | payer OTHER, SELFPAY | END 2025-01-28 12:31 | disposition home or self-care (01) | LOC: FBOREF 12:32 | PROVIDERS: PCP Family Medicine; Visit Provider Family Medicine | DX: I10 Essential (primary) hypertension (principal); E03.9 Hypothyroidism, unspecified; N92.0 Excessive and frequent menstruation with regular cycle; I48.0 Paroxysmal atrial fibrillation; D50.0 Iron deficiency anemia secondary to blood loss (chronic) | CPT/HCPCS: 80048; 80061; 82728; 84443; 84460; 85025 ==

== ENCOUNTER 2025-02-25 11:00 | Outpatient (RCR) | payer OTHER, SELFPAY ==
[2025-02-08 13:19] VITALS: BP 110/76; PULSE 73; RESP 17; TEMP 36.1; O2SAT 98
[2025-02-08] MEDS: IRON SUCROSE COMPLEX 200 MG in 0.9 % SODIUM CHLORIDE 100 ml 100 ML 440 MG IVPB (13:53)
[2025-02-08 14:10] VITALS: BP 103/69; PULSE 51; RESP 16; O2SAT 96
[2025-02-11 13:08] VITALS: BP 113/74; PULSE 63; RESP 17; TEMP 36.7; O2SAT 96
[2025-02-11] MEDS: IRON SUCROSE COMPLEX 200 MG in 0.9 % SODIUM CHLORIDE 100 ml 100 ML 440 MG IVPB (13:33)
[2025-02-11 13:50] VITALS: BP 105/71; PULSE 56; RESP 16; O2SAT 96
[2025-02-11] MEDS: SODIUM CHLORIDE 0.9 % (FLUSH) 10 ML SYRINGE IVF (13:57)
[2025-02-17 14:35] VITALS: BP 101/67; PULSE 72; RESP 16; TEMP 36.5; O2SAT 99
[2025-02-17] MEDS: IRON SUCROSE COMPLEX 200 MG in 0.9 % SODIUM CHLORIDE 100 ml 100 ML 440 MG IVPB (14:58)
[2025-02-17] MEDS: SODIUM CHLORIDE 0.9 % (FLUSH) 10 ML SYRINGE IVF (14:58)
[2025-02-17 15:15] VITALS: BP 95/62; PULSE 66; RESP 16; TEMP 36.7; O2SAT 98
[2025-02-17 15:52] VITALS: BP 99/66; PULSE 66; RESP 16; TEMP 36.4; O2SAT 98
[2025-02-22] MEDS: SODIUM CHLORIDE 0.9 % (FLUSH) 10 ML SYRINGE IVF (14:14)
[2025-02-22] MEDS: IRON SUCROSE COMPLEX 200 MG in 0.9 % SODIUM CHLORIDE 100 ml 100 ML 440 MG IVPB (14:14)
[2025-02-22 14:35] VITALS: BP 94/59; PULSE 60; RESP 16; O2SAT 98
[2025-02-25 11:07] VITALS: BP 117/76; PULSE 59; TEMP 36.2; O2SAT 99
[2025-02-25] MEDS: SODIUM CHLORIDE 0.9 % (FLUSH) 10 ML SYRINGE IVF (11:27)
[2025-02-25] MEDS: IRON SUCROSE COMPLEX 200 MG in 0.9 % SODIUM CHLORIDE 100 ml 100 ML 440 MG IVPB (11:35)
[2025-02-25 12:31] VITALS: BP 102/66; PULSE 53; RESP 16; TEMP 36.5; O2SAT 96
== END 2025-08-07 23:59 | disposition home or self-care (01) ==
LOC: CCIC 11:00
PROVIDERS: PCP Family Medicine; Referring Provider Family Medicine; Visit Provider Clinical Nurse Specialist
DX: D50.9 Iron deficiency anemia, unspecified (principal)
CPT/HCPCS: 96365; J1756; J7050

== ENCOUNTER 2025-03-25 10:38 | Outpatient (CLI) | payer OTHER, SELFPAY ==
[2025-03-27 04:11] LABS: HPV Source Cervix
[2025-03-31 09:42] LABS: Pap Test Digital Imaging Done
== END 2025-03-25 10:39 | disposition home or self-care (01) ==
PROVIDERS: PCP Family Medicine; Visit Provider Family Medicine
DX: D50.0 Iron deficiency anemia secondary to blood loss (chronic) (principal); K52.9 Noninfective gastroenteritis and colitis, unspecified; Z12.4 Encounter for screening for malignant neoplasm of cervix; Z11.51 Encounter for screening for human papillomavirus (HPV); Z13.810 Encounter for screening for upper gastrointestinal disorder
CPT/HCPCS: 82728; 82784; 85018; 86231; 86258; 86364; 87624; 87625; 88141; 88142; 88175

== ENCOUNTER 2025-03-31 16:40 | Outpatient (CLI) | payer OTHER, SELFPAY ==
--- NOTE | 2025-03-31 16:45 | CRLHL7_ITS ---
For Patients: As a result of the Century Cures Act, medical imaging exams and procedure reports are released immediately into your electronic medical record. You may view this report before your referring provider. If you have questions, please contact your health care provider. INDICATION: calculus of gallbladder without cholecystitis COMPARISON: 11/01/2023 TECHNIQUE: Real time viveros scale imaging and color Doppler analysis was performed of the right upper quadrant. FINDINGS: The patient`s liver measures 20.7 cm and has uniform echogenicity. There is a normal appearance of the hepatic IVC and proximal abdominal aorta. There is no evidence of ascites. The gallbladder is incompletely distended. Echogenic stone is present within the gallbladder lumen measuring 7.2 millimeters. The gallbladder wall measures 2.3 mm in thickness. The common bile duct is of normal size and measures 3.8 mm in diameter at the level of the marino hepatis. The pancreas appears normal. There is no evidence of a stone or hydronephrosis within the right kidney. The right kidney measures 11.9 cm in length. IMPRESSION: Chronic cholelithiasis. Incomplete gallbladder distention suggests chronic biliary dyskinesia/chronic cholecystitis. No biliary obstruction. Dictated by Mil Victor MD @ 04/01/2025 7:17:52 AM (Electronically Signed)
== END 2025-03-31 16:41 | disposition home or self-care (01) ==
LOC: US 16:40
PROVIDERS: PCP Family Medicine; Visit Provider Family Medicine
DX: K80.20 Calculus of gallbladder without cholecystitis without obstruction (principal); R16.0 Hepatomegaly, not elsewhere classified
CPT/HCPCS: 76705